=== PATIENT | female | born 1960 | race African-American/Black ===

== ENCOUNTER 2017-05-27 17:45 | Inpatient (IN) | payer OTHER ==
[2017-05-27] MEDS ORDERED: DOCUSATE SODIUM 100 MG CAP PO (18:30)
[2017-05-27] MEDS ORDERED: LORAZEPAM 2 MG INJ IV (18:30)
[2017-05-27] MEDS ORDERED: NACL 0.9% 3 ML SYG IV (18:30)
[2017-05-27] MEDS ORDERED: NA PHOSPHATE/BIPHOS 133 ML ENEMA PR (18:30)
[2017-05-27] MEDS ORDERED: ALBUTEROL/IPRATROPIUM (NEB) 3 ML AMP HHN (18:30)
[2017-05-27] MEDS ORDERED: hydrALAzine 20 MG INJ IV (18:30)
[2017-05-27] MEDS ORDERED: ACETAMINOPHEN 325 MG TAB PO (18:30)
[2017-05-27] MEDS ORDERED: NITROGLYCERIN (SL) 0.4 MG TAB SL (18:30)
[2017-05-27] MEDS ORDERED: ONDANSETRON 4 MG INJ IV (18:30)
[2017-05-27] MEDS: morphine 2 MG INJ IV (18:55)
[2017-05-27 19:47] LABS: INR 0.95; PROTIME 12.8 Sec (11.9-14.9)
[2017-05-27 19:48] LABS: PARTIAL THROMBOPLASTIN TIME 26.2 Sec (25.0-35.0)
[2017-05-27 20:02] LABS: FREE T4 (FREE THYROXINE) 1.24 ng/dl (0.64-1.79)
[2017-05-27] MEDS: SOD CHLORIDE 0.9% 1,000 ML IV (21:03)
[2017-05-27] MEDS: CYCLOBENZAPRINE 10 MG TAB PO (21:03)
[2017-05-27] MEDS: HEPARIN 5,000 UNIT/0.5 ML VIAL SC (21:05)
[2017-05-28] MEDS: morphine 2 MG INJ IV ×6 (00:51→23:50)
[2017-05-28] MEDS: SOD CHLORIDE 0.9% 1,000 ML IV ×3 (04:18→15:59)
[2017-05-28 06:02] LABS: ADD MAN DIFF? NO
[2017-05-28] MEDS: PANTOPRAZOLE 40 MG INJ IV (06:11)
[2017-05-28 06:13] LABS: WHITE BLOOD COUNT 7.7 10^3/ul (4.8-10.8)
[2017-05-28 06:13] LABS: BASOPHILS % 0.5 % (0.0-2.0); EOSINOPHILS # 0.3 10^3/ul (0.0-0.5); EOSINOPHILS % 3.5 % (0.0-7.0); HEMATOCRIT 34.5 % (37.0-47.0); HEMOGLOBIN 12.3 g/dl (12.0-16.0); LYMPHOCYTES # 2.5 10^3/ul (0.8-2.9); LYMPHOCYTES % 32.7 % (15.0-51.0); MEAN CORPUSCULAR HEMOGLOBIN 28.5 pg (29.0-33.0); MEAN CORPUSCULAR HGB CONC 35.7 g/dl (32.0-37.0); MEAN PLATELET VOLUME 9.2 fl (7.4-10.4); MONOCYTE # 0.7 10^3/ul (0.3-0.9); MONOCYTES % 8.4 % (0.0-11.0); NEUTROPHIL # 4.2 10^3/ul (1.6-7.5); NEUTROPHILS % 54.6 % (39.0-77.0); PLATELET COUNT 326 10^3/UL (140-415); RED BLOOD COUNT 4.31 10^6/ul (4.20-5.40); RED CELL DISTRIBUTION WIDTH 13.2 % (11.5-14.5)
[2017-05-28 06:28] LABS: HEMOGLOBIN A1C 5.7 % (0-5.9)
[2017-05-28 06:44] LABS: ANION GAP 12 (8-16); BLOOD UREA NITROGEN 12 mg/dl (7-20); CALCIUM 8.5 mg/dl (8.4-10.2); CARBON DIOXIDE 29 mmol/L (21-31); CHLORIDE 105 mmol/L (97-110); CHOL/HDL RATIO 3.2 RATIO; CHOLESTEROL 142 mg/dl (100-200); CREATININE 0.56 mg/dl (0.44-1.00); GLUCOSE 97 mg/dl (70-220); HDL CHOLESTEROL 44 mg/dl (37-92); LDL CHOLESTEROL,CALCULATED 78 mg/dl; MAGNESIUM 1.6 mg/dl (1.7-2.5); PHOSPHORUS 2.9 mg/dl (2.5-4.9); POTASSIUM 4.1 mmol/L (3.5-5.1); SODIUM 142 mmol/L (135-144); TRIGLYCERIDES 98 mg/dl (0-149)
[2017-05-28] MEDS: AMLODIPINE 10 MG TAB PO (08:14)
[2017-05-28] MEDS: BISACODYL (EC) 5 MG TAB PO (08:14)
[2017-05-28] MEDS: SERTRALINE 100 MG TAB PO (08:14)
[2017-05-28] MEDS: CYCLOBENZAPRINE 10 MG TAB PO ×3 (08:14→21:16)
[2017-05-28] MEDS: HEPARIN 5,000 UNIT/0.5 ML VIAL SC ×2 (08:18→21:18)
[2017-05-28] MEDS ORDERED: QUETIAPINE FUMARATE 300 MG PO (09:00)
[2017-05-28] MEDS: INFLUENZA VIRUS VACCINE 0.5 ML (DISPENSING) IM* (15:48)
[2017-05-29] MEDS: SOD CHLORIDE 0.9% 1,000 ML IV ×3 (04:02→14:24)
[2017-05-29] MEDS: morphine 2 MG INJ IV ×5 (04:02→21:02)
[2017-05-29] MEDS: PANTOPRAZOLE 40 MG INJ IV (05:28)
[2017-05-29 06:40] LABS: ADD MAN DIFF? NO
[2017-05-29 06:47] LABS: BASOPHILS % 0.6 % (0.0-2.0); EOSINOPHILS # 0.2 10^3/ul (0.0-0.5); EOSINOPHILS % 3.4 % (0.0-7.0); HEMATOCRIT 31.3 % (37.0-47.0); HEMOGLOBIN 11.5 g/dl (12.0-16.0); LYMPHOCYTES # 2.2 10^3/ul (0.8-2.9); LYMPHOCYTES % 31.6 % (15.0-51.0); MEAN CORPUSCULAR HEMOGLOBIN 29.1 pg (29.0-33.0); MEAN CORPUSCULAR HGB CONC 36.7 g/dl (32.0-37.0); MEAN CORPUSCULAR VOLUME 79.2 fl (82.0-101.0); MEAN PLATELET VOLUME 9.5 fl (7.4-10.4); MONOCYTE # 0.6 10^3/ul (0.3-0.9); NEUTROPHIL # 3.9 10^3/ul (1.6-7.5); NEUTROPHILS % 56.3 % (39.0-77.0); PLATELET COUNT 303 10^3/UL (140-415); RED BLOOD COUNT 3.95 10^6/ul (4.20-5.40); RED CELL DISTRIBUTION WIDTH 12.9 % (11.5-14.5)
[2017-05-29 07:07] LABS: ANION GAP 16 (8-16); BLOOD UREA NITROGEN 9 mg/dl (7-20); CALCIUM 8.7 mg/dl (8.4-10.2); CARBON DIOXIDE 26 mmol/L (21-31); CHLORIDE 104 mmol/L (97-110); GLUCOSE 113 mg/dl (70-220); POTASSIUM 3.5 mmol/L (3.5-5.1); SODIUM 142 mmol/L (135-144)
[2017-05-29] MEDS: HEPARIN 5,000 UNIT/0.5 ML VIAL SC ×2 (08:14→20:27)
[2017-05-29] MEDS: SERTRALINE 100 MG TAB PO (08:16)
[2017-05-29] MEDS: BISACODYL (EC) 5 MG TAB PO (08:16)
[2017-05-29] MEDS: CYCLOBENZAPRINE 10 MG TAB PO ×3 (08:16→20:25)
[2017-05-29] MEDS: AMLODIPINE 10 MG TAB PO (08:21)
[2017-05-29] MEDS: MAGNESIUM SULFATE 1 GM/D5W 100 ML IVPB (14:24)
[2017-05-29] MEDS ORDERED: QUETIAPINE FUMARATE PO ×2 (22:00→22:32)
[2017-05-29] MEDS: QUETIAPINE FUMARATE PO (23:34)
[2017-05-30] MEDS: morphine 2 MG INJ IV ×5 (01:03→21:09)
[2017-05-30] MEDS: SOD CHLORIDE 0.9% 1,000 ML IV ×3 (01:53→12:54)
[2017-05-30] MEDS: PANTOPRAZOLE 40 MG INJ IV (05:19)
[2017-05-30 06:24] LABS: ADD MAN DIFF? NO
[2017-05-30 06:42] LABS: BASOPHILS % 0.6 % (0.0-2.0); EOSINOPHILS # 0.2 10^3/ul (0.0-0.5); EOSINOPHILS % 4.7 % (0.0-7.0); HEMATOCRIT 30.4 % (37.0-47.0); LYMPHOCYTES # 2.1 10^3/ul (0.8-2.9); LYMPHOCYTES % 42.7 % (15.0-51.0); MEAN CORPUSCULAR HEMOGLOBIN 28.6 pg (29.0-33.0); MEAN CORPUSCULAR HGB CONC 36.2 g/dl (32.0-37.0); MEAN PLATELET VOLUME 9.3 fl (7.4-10.4); MONOCYTE # 0.5 10^3/ul (0.3-0.9); MONOCYTES % 9.3 % (0.0-11.0); NEUTROPHIL # 2.1 10^3/ul (1.6-7.5); NEUTROPHILS % 42.5 % (39.0-77.0); PLATELET COUNT 301 10^3/UL (140-415); RED BLOOD COUNT 3.85 10^6/ul (4.20-5.40); RED CELL DISTRIBUTION WIDTH 13.2 % (11.5-14.5)
[2017-05-30 06:42] LABS: WHITE BLOOD COUNT 4.9 10^3/ul (4.8-10.8)
[2017-05-30 06:53] LABS: ANION GAP 15 (8-16); BLOOD UREA NITROGEN 9 mg/dl (7-20); CALCIUM 8.5 mg/dl (8.4-10.2); CARBON DIOXIDE 27 mmol/L (21-31); CHLORIDE 106 mmol/L (97-110); CREATININE 0.54 mg/dl (0.44-1.00); GLUCOSE 69 mg/dl (70-220); POTASSIUM 3.5 mmol/L (3.5-5.1); SODIUM 144 mmol/L (135-144)
[2017-05-30] MEDS: SERTRALINE 100 MG TAB PO (08:21)
[2017-05-30] MEDS: CYCLOBENZAPRINE 10 MG TAB PO ×3 (08:21→20:36)
[2017-05-30] MEDS: AMLODIPINE 10 MG TAB PO (08:22)
[2017-05-30] MEDS: BISACODYL (EC) 5 MG TAB PO (08:22)
[2017-05-30] MEDS: HEPARIN 5,000 UNIT/0.5 ML VIAL SC ×2 (08:29→20:43)
[2017-05-30] MEDS: QUETIAPINE FUMARATE PO ×2 (09:44→20:36)
[2017-05-30] MEDS: DICLOFENAC (EC) 75 MG TAB PO ×2 (15:00→17:38)
[2017-05-30] MEDS: ASPIRIN (EC) 81 MG TAB PO (15:18)
[2017-05-30] MEDS: ALLOPURINOL 100 MG TAB PO (15:18)
[2017-05-31] MEDS: morphine 2 MG INJ IV ×2 (02:05→11:31)
[2017-05-31] MEDS: MAGNESIUM HYDROXIDE 30ML CUP PO (05:51)
[2017-05-31 06:55] LABS: ADD MAN DIFF? NO
[2017-05-31 07:01] LABS: BASOPHILS % 0.7 % (0.0-2.0); EOSINOPHILS # 0.3 10^3/ul (0.0-0.5); EOSINOPHILS % 4.3 % (0.0-7.0); HEMATOCRIT 31.6 % (37.0-47.0); HEMOGLOBIN 11.5 g/dl (12.0-16.0); LYMPHOCYTES # 2.1 10^3/ul (0.8-2.9); LYMPHOCYTES % 34.9 % (15.0-51.0); MEAN CORPUSCULAR HEMOGLOBIN 28.8 pg (29.0-33.0); MEAN CORPUSCULAR HGB CONC 36.4 g/dl (32.0-37.0); MEAN CORPUSCULAR VOLUME 79.2 fl (82.0-101.0); MONOCYTE # 0.6 10^3/ul (0.3-0.9); MONOCYTES % 9.5 % (0.0-11.0); NEUTROPHILS % 50.3 % (39.0-77.0); PLATELET COUNT 224 10^3/UL (140-415); RED BLOOD COUNT 3.99 10^6/ul (4.20-5.40); RED CELL DISTRIBUTION WIDTH 13.2 % (11.5-14.5)
[2017-05-31 07:20] LABS: ANION GAP 17 (8-16); BLOOD UREA NITROGEN 18 mg/dl (7-20); CALCIUM 9.1 mg/dl (8.4-10.2); CARBON DIOXIDE 27 mmol/L (21-31); CHLORIDE 106 mmol/L (97-110); CREATININE 0.78 mg/dl (0.44-1.00); GLUCOSE 107 mg/dl (70-220); POTASSIUM 4.5 mmol/L (3.5-5.1); SODIUM 145 mmol/L (135-144)
[2017-05-31] MEDS: BISACODYL (EC) 5 MG TAB PO (08:33)
[2017-05-31] MEDS: DICLOFENAC (EC) 75 MG TAB PO (08:33)
[2017-05-31] MEDS: AMLODIPINE 10 MG TAB PO (08:34)
[2017-05-31] MEDS: ASPIRIN (EC) 81 MG TAB PO (08:34)
[2017-05-31] MEDS: QUETIAPINE FUMARATE PO (08:35)
[2017-05-31] MEDS: SERTRALINE 100 MG TAB PO (08:35)
[2017-05-31] MEDS: ALLOPURINOL 100 MG TAB PO (08:35)
[2017-05-31] MEDS: CYCLOBENZAPRINE 10 MG TAB PO ×2 (08:35→12:13)
[2017-05-31] MEDS: PYRIDOXINE 50 MG TAB PO (08:35)
[2017-05-31] MEDS: HEPARIN 5,000 UNIT/0.5 ML VIAL SC (08:38)
[2017-05-31] MEDS ORDERED: morphine LIQ (10 MG/5 ML) CUP PO (16:30)
[2017-05-31] MEDS: HYDROCODONE/APAP (5/325) TAB PO (17:27)
== END 2017-05-31 18:45 | disposition home health service (06) | DRG 446 ==
LOC: PP2 17:45
PROVIDERS: Family Medicine
PROC: 3E0234Z Introduction of Serum, Toxoid and Vaccine into Muscle, Percutaneous Approach (ICD-10-PCS; principal; 2017-05-28)
DX: K80.20 Calculus of gallbladder without cholecystitis without obstruction (principal); K83.8 Other specified diseases of biliary tract; I10 Essential (primary) hypertension; M10.9 Gout, unspecified; F17.200 Nicotine dependence, unspecified, uncomplicated; M19.90 Unspecified osteoarthritis, unspecified site; Z87.11 Personal history of peptic ulcer disease; Z23 Encounter for immunization; Z79.82 Long term (current) use of aspirin
CPT/HCPCS: 78226; 80048; 80061; 83036; 83735; 84100; 84439; 84443; 85025; 85610; 85730; 87081; 90686; 97110; 97116; 97162; 97530

== ENCOUNTER 2017-09-14 09:20 | Day surgery (SDC) | payer OTHER ==
[2017-09-14] MEDS ORDERED: PROPOFOL 60 ML (11:25)
== END 2017-09-14 13:49 | disposition home or self-care (01) ==
LOC: GIL 09:20
DX: K92.1 Melena (principal); K29.50 Unspecified chronic gastritis without bleeding; K44.9 Diaphragmatic hernia without obstruction or gangrene; K64.8 Other hemorrhoids
CPT/HCPCS: 43239; 88305; 88312

== ENCOUNTER 2018-06-19 06:12 | Inpatient (IN) | payer OTHER ==
[2018-06-19] MEDS: BUPIVACAINE 0.25% (MPF) 30 ML INJ (07:28)
[2018-06-19] MEDS ORDERED: ALBUTEROL 0.083% (NEB) 2.5 MG/3 ML AMP HHN (07:30)
[2018-06-19] MEDS ORDERED: LABETALOL HCL 20MG INJ IV (07:30)
[2018-06-19] MEDS ORDERED: OXYCODONE/ACETAMINOPHEN (5/325) TAB PO ×2 (07:30)
[2018-06-19] MEDS ORDERED: KETOROLAC 30 MG INJ IV (07:30)
[2018-06-19] MEDS ORDERED: MEPERIDINE 25 MG INJ IV (07:30)
[2018-06-19] MEDS ORDERED: ONDANSETRON 4 MG INJ IV (07:30)
[2018-06-19] MEDS ORDERED: IPRATROPIUM (NEB) 0.5 MG/2.5 ML AMP HHN (07:30)
[2018-06-19] MEDS ORDERED: FENTAnyl 50 MCG/ML VIAL IV ×3 (07:30)
[2018-06-19] MEDS ORDERED: HYDROmorphONE 1 MG/5 ML IV SYRINGE IV ×3 (07:30)
[2018-06-19] MEDS ORDERED: DIPHENHYDRAMINE 50 MG INJ IV (07:30)
[2018-06-19] MEDS ORDERED: ROPIVACAINE 0.5 % 30 ML VIAL (07:41)
[2018-06-19] MEDS ORDERED: PROPOFOL 20 ML (07:41)
[2018-06-19] MEDS ORDERED: DEXAMETHASONE 4 MG/ML 5 ML INJ (07:41)
[2018-06-19] MEDS ORDERED: MIDAZOLAM 1 MG/ML 2 ML INJ (07:41)
[2018-06-19] MEDS ORDERED: ROCURONIUM 50 MG INJ (07:41)
[2018-06-19] MEDS ORDERED: ONDANSETRON 4 MG INJ (08:14)
[2018-06-19] MEDS ORDERED: PHENYLephrine (100 MCG/ML) 10ML SYG (08:14)
[2018-06-19] MEDS ORDERED: METOPROLOL 5 MG INJ (10:14)
[2018-06-19] MEDS ORDERED: GLYCOPYRROLATE 0.4 MG INJ (10:15)
[2018-06-19] MEDS ORDERED: NEOSTIGMINE 3 MG/3 ML SYRINGE (10:15)
[2018-06-19] MEDS ORDERED: FENTAnyl 50 MCG/ML VIAL (10:32)
[2018-06-19] MEDS ORDERED: ACETAMINOPHEN 325 MG TAB PO (11:00)
[2018-06-19] MEDS: hydrALAzine 20 MG INJ IV ×3 (11:15→11:51)
[2018-06-19] MEDS: DEXTROSE 5%-0.45% NACL 1,000 ML IV (12:19)
[2018-06-19] MEDS: SOD CHLORIDE 0.9% 1,000 ML IV (12:33)
[2018-06-19] MEDS: CEFAZOLIN 2 GM/50 ML (PMX) 50 ML IVPB (12:34)
[2018-06-19] MEDS: KETOROLAC 30 MG INJ IV ×2 (12:38→18:14)
[2018-06-19] MEDS: DOCUSATE SODIUM 100 MG CAP PO ×2 (12:38→20:39)
[2018-06-19] MEDS ORDERED: ALBUTEROL HFA 8 GM INHALER INH (14:00)
[2018-06-19] MEDS: morphine 2 MG INJ IV ×3 (14:10→23:16)
[2018-06-19] MEDS: ONDANSETRON 4 MG INJ IV (19:27)
[2018-06-19] MEDS: RANITIDINE 150 MG TAB PO (20:39)
[2018-06-19] MEDS: FAMOTIDINE 20 MG TAB PO (20:39)
[2018-06-19] MEDS: traMADol 50 MG TAB PO (21:38)
[2018-06-20] MEDS: SOD CHLORIDE 0.9% 1,000 ML IV ×8 (02:00→23:14)
[2018-06-20] MEDS: KETOROLAC 30 MG INJ IV ×3 (02:08→10:46)
[2018-06-20] MEDS: DEXTROSE 5%-0.45% NACL 1,000 ML IV ×4 (02:09→14:58)
[2018-06-20 05:11] LABS: ABNORMAL IP MESSAGE 1; HEMATOCRIT 49.3 % (37.0-47.0); HEMOGLOBIN 17.3 g/dl (12.0-16.0); MEAN CORPUSCULAR HEMOGLOBIN 28.1 pg (29.0-33.0); MEAN CORPUSCULAR HGB CONC 35.1 g/dl (32.0-37.0); MEAN PLATELET VOLUME 11.1 fl (7.4-10.4); PLATELET COUNT 238 10^3/UL (140-415); RED BLOOD COUNT 6.16 10^6/ul (4.20-5.40); RED CELL DISTRIBUTION WIDTH 15.5 % (11.5-14.5)
[2018-06-20 05:11] LABS: WHITE BLOOD COUNT 3.7 10^3/ul (4.8-10.8)
[2018-06-20] MEDS: morphine 2 MG INJ IV ×4 (05:11→16:56)
[2018-06-20] MEDS: ONDANSETRON 4 MG INJ IV ×2 (05:12→12:47)
[2018-06-20 05:19] LABS: ADD MAN DIFF? YES; POSITIVE DIFF @See below
[2018-06-20 05:25] LABS: ALANINE AMINOTRANSFERASE 30 IU/L (13-69); ALBUMIN 3.3 g/dl (3.3-4.9); ALBUMIN/GLOBULIN RATIO 1.17; ALKALINE PHOSPHATASE 64 IU/L (42-121); ANION GAP 14 (5-13); ASPARTATE AMINO TRANSFERASE 51 IU/L (15-46); BILIRUBIN,INDIRECT 1.2 mg/dl (0-1.1); BILIRUBIN,TOTAL 1.2 mg/dl (0.2-1.3); BLOOD UREA NITROGEN 19 mg/dl (7-20); CALCIUM 9.2 mg/dl (8.4-10.2); CARBON DIOXIDE 19 mmol/L (21-31); CHLORIDE 104 mmol/L (97-110); CREATININE 0.84 mg/dl (0.44-1.00); Estimated GFR > 60 mL/min (>60); GLUCOSE 183 mg/dl (70-220); POTASSIUM 3.8 mmol/L (3.5-5.1); SODIUM 137 mmol/L (135-144); TOTAL PROTEIN 6.1 g/dl (6.1-8.1)
[2018-06-20] MEDS ORDERED: ROCURONIUM 50 MG INJ ×2 (07:00→18:44)
[2018-06-20] MEDS ORDERED: NA BICARBONATE 8.4% 50 ML SYG ×2 (07:00→21:55)
[2018-06-20] MEDS ORDERED: ETOMIDATE 20 MG INJ (07:00)
[2018-06-20 08:21] LABS: BAND NEUTROPHILS #M 1.1 10^3/ul (0.0-0.6); BAND NEUTROPHILS % (M) 31 % (0-4); ERYTHROBLAST% (NRBC) (M) 4 % (0-0); GIANT THROMBO% (M) 6 % (0-0); LYMPHOCYTES % (M) 56 % (15-51); MONOCYTE #M 0.1 10^3/ul (0.3-0.9); MONOCYTES % (M) 4 % (0-11); PLATELET ESTIMATE NORMAL; POIKILOCYTOSIS 1+ (0-0); REACTIVE LYMPHOCYTES #M 0.1 10^3/ul (0.0-0.0); REACTIVE LYMPHOCYTES% (M) 4 % (0-0); SEG NEUT #M 0.3 10^3/ul (1.6-7.5); SEGMENTED NEUTROPHILS (M) % 6 % (39-77); SMUDGE%M 56 % (0-0); TARGET CELLS 1+ (0-0)
[2018-06-20] MEDS: POLYETHYLENE GLYCOL 17 GM PACKET PO (08:24)
[2018-06-20] MEDS: FAMOTIDINE 20 MG TAB PO ×2 (08:25→21:00)
[2018-06-20] MEDS: ASPIRIN (EC) 81 MG TAB PO (08:25)
[2018-06-20] MEDS: SERTRALINE 100 MG TAB PO (08:25)
[2018-06-20] MEDS: ALLOPURINOL 300 MG TAB PO (08:25)
[2018-06-20] MEDS: BENAZEPRIL 40 MG TAB PO (08:25)
[2018-06-20] MEDS: CALCIUM POLYCARBOPHIL 625 MG TAB PO (08:32)
[2018-06-20] MEDS: KETOROLAC 15 MG INJ IV ×2 (12:41→14:56)
[2018-06-20 12:54] LABS: ABNORMAL IP MESSAGE 1; HEMATOCRIT 41.3 % (37.0-47.0); HEMOGLOBIN 14.2 g/dl (12.0-16.0); MEAN CORPUSCULAR HEMOGLOBIN 28.1 pg (29.0-33.0); MEAN CORPUSCULAR HGB CONC 34.4 g/dl (32.0-37.0); MEAN CORPUSCULAR VOLUME 81.6 fl (82.0-101.0); MEAN PLATELET VOLUME 10.2 fl (7.4-10.4); NUCLEATED RED BLOOD CELLS% 0.8 /100WBC (0.0-0.0); PLATELET COUNT 274 10^3/UL (140-415); RED BLOOD COUNT 5.06 10^6/ul (4.20-5.40); RED CELL DISTRIBUTION WIDTH 14.9 % (11.5-14.5)
[2018-06-20 12:54] LABS: WHITE BLOOD COUNT 2.6 10^3/ul (4.8-10.8)
[2018-06-20 12:57] LABS: ADD MAN DIFF? YES; POSITIVE DIFF @See below
[2018-06-20 13:16] LABS: MAGNESIUM 1.8 mg/dl (1.7-2.5)
[2018-06-20 13:24] LABS: ALANINE AMINOTRANSFERASE 42 IU/L (13-69); ALBUMIN 2.7 g/dl (3.3-4.9); ALBUMIN/GLOBULIN RATIO 1.08; ALKALINE PHOSPHATASE 60 IU/L (42-121); ANION GAP 18 (5-13); ASPARTATE AMINO TRANSFERASE 95 IU/L (15-46); BILIRUBIN,INDIRECT 0.6 mg/dl (0-1.1); BILIRUBIN,TOTAL 0.6 mg/dl (0.2-1.3); BLOOD UREA NITROGEN 24 mg/dl (7-20); CALCIUM 8.9 mg/dl (8.4-10.2); CARBON DIOXIDE 14 mmol/L (21-31); CHLORIDE 104 mmol/L (97-110); CREATININE 1.67 mg/dl (0.44-1.00); Estimated GFR 38 mL/min (>60); GLUCOSE 94 mg/dl (70-220); SODIUM 136 mmol/L (135-144); TOTAL PROTEIN 5.2 g/dl (6.1-8.1)
[2018-06-20 13:33] LABS: LACTIC ACID 12.9 mmol/L (0.5-2.0)
[2018-06-20] MEDS ORDERED: VANCOMYCIN IV PER PHARMACY XX (14:30)
[2018-06-20 14:34] LABS: BAND NEUTROPHILS #M 0.7 10^3/ul (0.0-0.6); BAND NEUTROPHILS % (M) 30 % (0-4); BURR CELLS 2+ (0-0); ERYTHROBLAST% (NRBC) (M) 1 % (0-0); GIANT THROMBO% (M) 4 % (0-0); LYMPHOCYTES #M 0.6 10^3/ul (0.8-2.9); LYMPHOCYTES % (M) 25 % (15-51); METAMYELOCYTES %M 2 % (0-0); MONOCYTE #M 0.1 10^3/ul (0.3-0.9); MONOCYTES % (M) 7 % (0-11); PLATELET ESTIMATE NORMAL; POIKILOCYTOSIS 3+ (0-0); POLYCHROMASIA 2+ (0-0); REACTIVE LYMPHOCYTES #M 0.6 10^3/ul (0.0-0.0); REACTIVE LYMPHOCYTES% (M) 26 % (0-0); SEG NEUT #M 0.3 10^3/ul (1.6-7.5); SEGMENTED NEUTROPHILS (M) % 10 % (39-77); SMUDGE%M 35 % (0-0); TARGET CELLS 1+ (0-0)
[2018-06-20] MEDS ORDERED: NORepinephrine 8MG/250 ML (PMX 250 ML (14:58)
[2018-06-20] MEDS ORDERED: PIPER-TAZO 2.25 GM (PMX) 50 ML IVPB (15:00)
[2018-06-20] MEDS: LIDOCAINE 1% (MPF) 5 ML VIAL SC (15:30)
[2018-06-20 16:19] LABS: ADD UMIC YES; UR ASCORBIC ACID NEGATIVE (NEGATIVE); UR BACTERIA FEW /HPF (NONE SEEN); UR BILIRUBIN (Dip) NEGATIVE (NEGATIVE); UR BLOOD (Dip) 1+ mg/dL (NEGATIVE); UR CLARITY SLIGHTLY CLOUDY (CLEAR); UR COLOR YELLOW (YELLOW); UR GLUCOSE (Dip) 1+ mg/dL (NEGATIVE); UR KETONES (Dip) NEGATIVE (NEGATIVE); UR LEUKOCYTE ESTERASE (Dip) NEGATIVE Leu/ul (NEGATIVE); UR MUCUS MANY /HPF (NONE SEEN); UR NITRITE (Dip) NEGATIVE (NEGATIVE); UR RBC 1 /HPF (0-5); UR SPECIFIC GRAVITY (Dip) 1.017 (1.003-1.030); UR TOTAL PROTEIN (Dip) NEGATIVE (NEGATIVE); UR UROBILINOGEN (Dip) 1+ mg/dL (NEGATIVE); UR WBC 4 /HPF (0-5)
[2018-06-20 17:00] LABS: LIPASE 598 U/L (23-300)
[2018-06-20 17:00] LABS: AMYLASE 354 U/L (11-123)
[2018-06-20] MEDS: MEROPENEM 1 GM/50ML(PMX) 50 ML IVPB (17:16)
[2018-06-20] MEDS: VANCOMYCIN 1 GM 250 ML IVPB (17:16)
[2018-06-20] MEDS: PANTOPRAZOLE 40 MG INJ IV (17:48)
[2018-06-20 18:15] LABS: AADO2 Arterial 26.2 mmHg (7.0-24.0); Arterial Blood Gas Oxygen Sat 86.9 mmHG (95.0-98.0); Arterial COHb 0.6 % (0.0-3.0); Arterial Fraction of Oxyhgb 85.9 % (93.0-99.0); Arterial HCO3 5.3 mmol/L (22.0-26.0); Arterial MetHb 0.5 % (0.0-1.5); Arterial pCO2 33.7 mmhg (35-45); MODE ROOM AIR; Site Right Brachial
[2018-06-20] MEDS: NA BICARBONATE 8.4% 50 ML SYG IV (18:30)
[2018-06-20] MEDS ORDERED: GLYCOPYRROLATE 0.4 MG INJ (18:44)
[2018-06-20] MEDS ORDERED: PROPOFOL 20 ML (18:44)
[2018-06-20] MEDS ORDERED: NEOSTIGMINE 3 MG/3 ML SYRINGE (18:44)
[2018-06-20] MEDS ORDERED: CEFAZOLIN 1 GM INJ (18:44)
[2018-06-20] MEDS ORDERED: FENTAnyl 50 MCG/ML VIAL ×2 (18:45→21:22)
[2018-06-20] MEDS ORDERED: DEXAMETHASONE 4 MG/ML 5 ML INJ (18:45)
[2018-06-20] MEDS ORDERED: ONDANSETRON 4 MG INJ (18:45)
[2018-06-20] MEDS ORDERED: MIDAZOLAM 1 MG/ML 2 ML INJ ×3 (18:45→22:09)
[2018-06-20 19:22] LABS: TROPONIN-I 0.022 ng/ml (0.000-0.120)
[2018-06-20 19:51] LABS: LACTIC ACID 14.8 mmol/L (0.5-2.0)
[2018-06-20] MEDS: RANITIDINE 150 MG TAB PO (21:00)
[2018-06-20] MEDS: DOCUSATE SODIUM 100 MG CAP PO (21:00)
[2018-06-20 21:52] LABS: AADO2 Arterial 291.3 mmHg (7.0-24.0); Arterial Base Excess -20.6 mmol/L (-3.0-3); Arterial Blood Gas Oxygen Sat 98.2 mmHG (95.0-98.0); Arterial COHb 0.2 % (0.0-3.0); Arterial Fraction of Oxyhgb 97.5 % (93.0-99.0); Arterial HCO3 10.7 mmol/L (22.0-26.0); Arterial MetHb 0.5 % (0.0-1.5); Arterial pCO2 49.6 mmhg (35-45); MODE VENT - AC OR; Site LB
[2018-06-20 22:31] LABS: AADO2 Arterial 330.2 mmHg (7.0-24.0); Arterial Base Excess -17.6 mmol/L (-3.0-3); Arterial Blood Gas Oxygen Sat 98.2 mmHG (95.0-98.0); Arterial COHb 0.3 % (0.0-3.0); Arterial Fraction of Oxyhgb 97.1 % (93.0-99.0); Arterial HCO3 12.2 mmol/L (22.0-26.0); Arterial MetHb 0.8 % (0.0-1.5); Arterial pCO2 47.9 mmhg (35-45); MODE VENT - AC OR; Site Right Brachial
[2018-06-20] MEDS: NORepinephrine 8MG/250 ML (PMX 250 ML IV (22:57)
[2018-06-20 23:55] LABS: WHITE BLOOD COUNT 0.9 10^3/ul (4.8-10.8)
[2018-06-20 23:55] LABS: ABNORMAL IP MESSAGE 1; HEMOGLOBIN 10.8 g/dl (12.0-16.0); MEAN CORPUSCULAR HEMOGLOBIN 28.4 pg (29.0-33.0); MEAN CORPUSCULAR HGB CONC 34.8 g/dl (32.0-37.0); MEAN CORPUSCULAR VOLUME 81.6 fl (82.0-101.0); MEAN PLATELET VOLUME 10.1 fl (7.4-10.4); NUCLEATED RED BLOOD CELLS% 3.2 /100WBC (0.0-0.0); PLATELET COUNT 132 10^3/UL (140-415)
[2018-06-20 23:57] LABS: POSITIVE DIFF @See below
[2018-06-20 23:58] LABS: ADD MAN DIFF? YES
[2018-06-21] MEDS: MEROPENEM 1 GM/50ML(PMX) 50 ML IVPB ×3 (00:01→15:36)
[2018-06-21] MEDS: SODIUM BICARBONATE (IV ADD) 100 MEQ in DEXTROSE 5% 1,000 ML IV ×2 (00:03→08:06)
[2018-06-21 00:10] LABS: AADO2 Arterial 158.1 mmHg (7.0-24.0); Arterial Base Excess -21.1 mmol/L (-3.0-3); Arterial COHb 0 % (0.0-3.0); Arterial Fraction of Oxyhgb 91.5 % (93.0-99.0); Arterial HCO3 9.2 mmol/L (22.0-26.0); Arterial MetHb 0.5 % (0.0-1.5); Arterial pCO2 37.9 mmhg (35-45); MODE VENT - AC; Site A-Line
[2018-06-21 00:13] LABS: ALBUMIN/GLOBULIN RATIO 1.17; ALKALINE PHOSPHATASE 181 IU/L (42-121); ANION GAP 23 (5-13); BLOOD UREA NITROGEN 24 mg/dl (7-20); CALCIUM 6.9 mg/dl (8.4-10.2); CARBON DIOXIDE 12 mmol/L (21-31); CHLORIDE 109 mmol/L (97-110); CREATININE 1.58 mg/dl (0.44-1.00); Estimated GFR 41 mL/min (>60); POTASSIUM 3.5 mmol/L (3.5-5.1); SODIUM 144 mmol/L (135-144); TOTAL PROTEIN 3.7 g/dl (6.1-8.1)
[2018-06-21 00:21] LABS: GLUCOSE 24 mg/dl (70-220)
[2018-06-21 00:22] LABS: ALANINE AMINOTRANSFERASE 1576 IU/L (13-69)
[2018-06-21 00:29] LABS: LACTIC ACID 17.7 mmol/L (0.5-2.0)
[2018-06-21] MEDS: DEXTROSE 50% 50 ML SYRINGE IV (00:33)
[2018-06-21] MEDS ORDERED: ACCU-CHEK XX (01:00)
[2018-06-21 01:03] LABS: BILIRUBIN,INDIRECT 0.3 mg/dl (0-1.1); BILIRUBIN,TOTAL 0.7 mg/dl (0.2-1.3)
[2018-06-21] MEDS: NA BICARBONATE 8.4% 50 ML SYG IV ×4 (01:25→13:58)
[2018-06-21] MEDS: SOD CHLORIDE 0.9% 1,000 ML IV ×3 (02:00→15:38)
[2018-06-21] MEDS: VASOPRESSIN 60 UNIT in DEXTROSE 5% 57 ML IV ×2 (04:00→04:20)
[2018-06-21] MEDS: NORepinephrine 8MG/250 ML (PMX 250 ML IV ×2 (04:22→13:45)
[2018-06-21 05:42] LABS: WHITE BLOOD COUNT 0.8 10^3/ul (4.8-10.8)
[2018-06-21 05:42] LABS: ABNORMAL IP MESSAGE 1; HEMATOCRIT 31.9 % (37.0-47.0); HEMOGLOBIN 11.4 g/dl (12.0-16.0); MEAN CORPUSCULAR HEMOGLOBIN 28.8 pg (29.0-33.0); MEAN CORPUSCULAR HGB CONC 35.7 g/dl (32.0-37.0); MEAN CORPUSCULAR VOLUME 80.6 fl (82.0-101.0); MEAN PLATELET VOLUME 11.5 fl (7.4-10.4); NUCLEATED RED BLOOD CELLS% 2.6 /100WBC (0.0-0.0); PLATELET COUNT 123 10^3/UL (140-415); RED BLOOD COUNT 3.96 10^6/ul (4.20-5.40); RED CELL DISTRIBUTION WIDTH 14.6 % (11.5-14.5)
[2018-06-21 06:04] LABS: ADD MAN DIFF? YES; POSITIVE DIFF @See below
[2018-06-21 06:10] LABS: PROTIME 63.5 Sec (11.9-14.9)
[2018-06-21] MEDS: PANTOPRAZOLE 40 MG INJ IV (06:24)
[2018-06-21 06:42] LABS: INR 7.51
[2018-06-21 06:48] LABS: ALBUMIN 1.9 g/dl (3.3-4.9); ALBUMIN/GLOBULIN RATIO 1.18; ALKALINE PHOSPHATASE 265 IU/L (42-121); ANION GAP 22 (5-13); BILIRUBIN,INDIRECT 0.6 mg/dl (0-1.1); BILIRUBIN,TOTAL 0.9 mg/dl (0.2-1.3); BLOOD UREA NITROGEN 26 mg/dl (7-20); CALCIUM 6.5 mg/dl (8.4-10.2); CARBON DIOXIDE 14 mmol/L (21-31); CHLORIDE 107 mmol/L (97-110); CREATININE 1.76 mg/dl (0.44-1.00); Estimated GFR 36 mL/min (>60); GLUCOSE 112 mg/dl (70-220); POTASSIUM 3.5 mmol/L (3.5-5.1); SODIUM 143 mmol/L (135-144); TOTAL PROTEIN 3.5 g/dl (6.1-8.1)
[2018-06-21 06:55] LABS: TROPONIN-I 0.153 ng/ml (0.000-0.120)
[2018-06-21 07:10] LABS: ALANINE AMINOTRANSFERASE 2023 IU/L (13-69)
[2018-06-21 07:17] LABS: ASPARTATE AMINO TRANSFERASE 4584 IU/L (15-46)
[2018-06-21 07:38] LABS: LACTIC ACID 17.8 mmol/L (0.5-2.0)
[2018-06-21 07:39] LABS: AADO2 Arterial 180.8 mmHg (7.0-24.0); Arterial Base Excess -18.1 mmol/L (-3.0-3); Arterial Blood Gas Oxygen Sat 89.3 mmHG (95.0-98.0); Arterial COHb 0.6 % (0.0-3.0); Arterial Fraction of Oxyhgb 88.6 % (93.0-99.0); Arterial HCO3 9.9 mmol/L (22.0-26.0); Arterial MetHb 0.2 % (0.0-1.5); Arterial pCO2 30.7 mmhg (35-45); MODE VENT - AC; Site A-Line
[2018-06-21] MEDS: FENTAnyl (DRIP) 1000 mcg/100mL 100 ML IV (08:10)
[2018-06-21 09:00] LABS: PLATELET COUNT 123 10^3/UL (140-415)
[2018-06-21] MEDS: ASPIRIN (EC) 81 MG TAB PO (09:00)
[2018-06-21] MEDS: FAMOTIDINE 20 MG TAB PO (09:00)
[2018-06-21] MEDS: SERTRALINE 100 MG TAB PO (09:00)
[2018-06-21] MEDS: CALCIUM POLYCARBOPHIL 625 MG TAB PO (09:00)
[2018-06-21] MEDS: POLYETHYLENE GLYCOL 17 GM PACKET PO (09:00)
[2018-06-21] MEDS: ALLOPURINOL 300 MG TAB PO (09:00)
[2018-06-21 09:17] LABS: PROTIME 82.9 Sec (11.9-14.9); PT RATIO 6.5
[2018-06-21 09:31] LABS: INR > 10.00
[2018-06-21 09:32] LABS: PARTIAL THROMBOPLASTIN TIME 149.6 Sec (23.0-35.0)
[2018-06-21 09:34] LABS: INR > 10.00; PARTIAL THROMBOPLASTIN TIME 149.6 Sec (23.0-35.0); PROTIME 82.9 Sec (11.9-14.9); PT RATIO 6.5
[2018-06-21 09:41] LABS: THROMBIN TIME 16.9 SEC (13.8-19.1)
[2018-06-21 09:52] LABS: ANISOCYTOSIS 1+ (0-0); BAND NEUTROPHILS #M 0.2 10^3/ul (0.0-0.6); BAND NEUTROPHILS % (M) 27 % (0-4); BURR CELLS 1+ (0-0); EOSINOPHILS % (M) 1 % (0-7); ERYTHROBLAST% (NRBC) (M) 8 % (0-0); GIANT THROMBO% (M) 1 % (0-0); LYMPHOCYTES #M 0.4 10^3/ul (0.8-2.9); LYMPHOCYTES % (M) 52 % (15-51); METAMYELOCYTES %M 12 % (0-0); MONOCYTES % (M) 3 % (0-11); PLATELET ESTIMATE NORMAL; POIKILOCYTOSIS 3+ (0-0); SEGMENTED NEUTROPHILS (M) % 5 % (39-77); SMUDGE%M 15 % (0-0)
[2018-06-21 10:17] LABS: LACTIC ACID 19.4 mmol/L (0.5-2.0)
[2018-06-21 12:05] LABS: AADO2 Arterial 255.9 mmHg (7.0-24.0); Arterial Base Excess -18.9 mmol/L (-3.0-3); Arterial COHb 0.2 % (0.0-3.0); Arterial Fraction of Oxyhgb 87.7 % (93.0-99.0); Arterial HCO3 9.2 mmol/L (22.0-26.0); Arterial MetHb 0.1 % (0.0-1.5); Arterial pCO2 29.3 mmhg (35-45); MODE VENT - AC; Site A-Line
[2018-06-21] MEDS ORDERED: VANCOMYCIN 500 MG (PMX) 100 ML IVPB ×2 (15:00→17:00)
[2018-06-21] MEDS ORDERED: PHYTONADIONE 10 MG in DEXTROSE 5% 50 ML IVPB (16:30)
[2018-06-21] MEDS ORDERED: EPINEPHrine 0.1 MG/ML SYG (16:40)
[2018-06-22 10:55] LABS: AADO2 Arterial 260.6 mmHg (7.0-24.0); Arterial Base Excess -29.3 mmol/L (-3.0-3); Arterial Blood Gas Oxygen Sat 98.7 mmHG (95.0-98.0); Arterial COHb 0.3 % (0.0-3.0); Arterial Fraction of Oxyhgb 97.7 % (93.0-99.0); Arterial HCO3 7.1 mmol/L (22.0-26.0); Arterial MetHb 0.7 % (0.0-1.5); Arterial pCO2 57.5 mmhg (35-45); MODE VENT - OR; Site LB
== END 2018-06-21 16:47 | disposition expired | DRG 417 ==
LOC: SDS 06:12 → ICU 06-20 13:12 → SDS 06:12 → MS1 10:31
PROC: 0FT44ZZ Resection of Gallbladder, Percutaneous Endoscopic Approach (ICD-10-PCS; principal; 2018-06-19 07:30)
PROC: 0DNW4ZZ Release Peritoneum, Percutaneous Endoscopic Approach (ICD-10-PCS; 2018-06-19 07:30)
PROC: 0DB80ZZ Excision of Small Intestine, Open Approach (ICD-10-PCS; 2018-06-19 07:47)
DX: K80.10 Calculus of gallbladder with chronic cholecystitis without obstruction (principal); N17.0 Acute kidney failure with tubular necrosis; A41.9 Sepsis, unspecified organism; R65.21 Severe sepsis with septic shock; K63.1 Perforation of intestine (nontraumatic); K72.00 Acute and subacute hepatic failure without coma; J96.91 Respiratory failure, unspecified with hypoxia; D65 Disseminated intravascular coagulation [defibrination syndrome]; E87.2 Acidosis; K55.9 Vascular disorder of intestine, unspecified; N39.0 Urinary tract infection, site not specified; D68.9 Coagulation defect, unspecified; K66.0 Peritoneal adhesions (postprocedural) (postinfection); I10 Essential (primary) hypertension; J43.9 Emphysema, unspecified; F20.9 Schizophrenia, unspecified; E87.6 Hypokalemia; Z90.3 Acquired absence of stomach [part of]; K25.9 Gastric ulcer, unspecified as acute or chronic, without hemorrhage or perforation; K44.9 Diaphragmatic hernia without obstruction or gangrene; K21.9 Gastro-esophageal reflux disease without esophagitis; F17.200 Nicotine dependence, unspecified, uncomplicated; Z87.828 Personal history of other (healed) physical injury and trauma; I46.9 Cardiac arrest, cause unspecified; D70.9 Neutropenia, unspecified; D64.9 Anemia, unspecified; R79.89 Other specified abnormal findings of blood chemistry
CPT/HCPCS: 36600; 71045; 74018; 74176; 80053; 81001; 82150; 82803; 82962; 83605; 83690; 83735; 84484; 85025; 85049; 85610; 85670; 85730; 86850; 86900; 86901; 87040-91; 87070; 87075; 87086; 87102; 88304; 88305; 93005; 93306; 94002; 99217